=== PATIENT | female | born 1970 | race Caucasian/White ===

== ENCOUNTER 2020-06-20 15:58 | Outpatient (RCR) | payer OTHER, SELFPAY ==
--- NOTE | 2020-06-21 16:49 | PTOPEVAL ---
Thank you for referring Vania Rowland to [facility].? The patient is scheduled to be seen for therapy? ____x/week for ___ weeks. Please review, sign, date and return this plan of care ILSA. I agree with and certify that the following plan of care is medically necessary. Referring Physician Date Admitting Provider: Attending Provider: Samira Gould, MD Referring Provider: *PT Outpatient Evaluation Start: 06/20/20 16:12 Freq: Status: Active Protocol: Document 06/20/20 16:12 [facility] (Rec: 06/20/20 17:03 [facility] [id number]) Therapy Assessment Status Assessment Status Assessment Status Evaluation Outpatient Past Medical History Cardiovascular History Hx Hypercholesterolemia Yes Hx Hypertension Yes Musculoskeletal History Hx Fibromyalgia Yes Reproductive History Hx Post Menopausal Yes Evaluation Information Problem Diagnosis R ankle sprain and avulsion fracture of the tuberosity of the calcaneus Onset 05/07/20 Subjective Information patient reports she injured Query Text:As Reported By Patient/ her ankle/heel on 05/07/20. Family she reports she she fell through a floor and jammed her R LE into the ground. she reports she reports she has had x-rays of the ankle. she reports no surgery. she reports she had no boot, but did use an air cast. she reports she uses this air cast infrequently still for increased walkikng activities. she reports she has increased pain with walking, walking on uneven ground, and walking down steps. Prior Level of Function Comments Additional Prior Level of Function prior to her fall, no issues Comments with the R ankle. patient reports she is currently off work. she reports she works for [employer]. Pain Assessment Timing of Pain Assessment Timing of Pain Assessment Assessment Pain Scale Pain Scale Used Numeric (1 - 10) Self Report Pain Assessment Right Ankle(s) Reported Pain Level 3 Pain Frequency Acute,Intermittent Lowest Pain Intensity 0 Greatest Pain Intensity 8 Pain Score Pain Score 3: Self Report Additional Pain Score Comments patient re
--- NOTE | 2020-06-21 17:06 | PTOPEVAL ---
Thank you for referring Vania Rowland to [facility].? The patient is scheduled to be seen for therapy? ____x/week for ___ weeks. Please review, sign, date and return this plan of care ILSA. I agree with and certify that the following plan of care is medically necessary. Referring Physician Date Admitting Provider: Attending Provider: Samira Gould, MD Referring Provider: *PT Outpatient Evaluation Start: 06/20/20 16:12 Freq: Status: Active Protocol: Document 06/20/20 16:12 [facility] (Rec: 06/20/20 17:03 [facility] [id number]) Therapy Assessment Status Assessment Status Assessment Status Evaluation Outpatient Past Medical History Cardiovascular History Hx Hypercholesterolemia Yes Hx Hypertension Yes Musculoskeletal History Hx Fibromyalgia Yes Reproductive History Hx Post Menopausal Yes Evaluation Information Problem Diagnosis R ankle sprain and avulsion fracture of the tuberosity of the calcaneus Onset 05/07/20 Subjective Information patient reports she injured Query Text:As Reported By Patient/ her ankle/heel on 05/07/20. Family she reports she she fell through a floor and jammed her R LE into the ground. she reports she reports she has had x-rays of the ankle. she reports no surgery. she reports she had no boot, but did use an air cast. she reports she uses this air cast infrequently still for increased walkikng activities. she reports she has increased pain with walking, walking on uneven ground, and walking down steps. Prior Level of Function Comments Additional Prior Level of Function prior to her fall, no issues Comments with the R ankle. patient reports she is currently off work. she reports she works for [employer]. Pain Assessment Timing of Pain Assessment Timing of Pain Assessment Assessment Pain Scale Pain Scale Used Numeric (1 - 10) Self Report Pain Assessment Right Ankle(s) Reported Pain Level 3 Pain Frequency Acute,Intermittent Lowest Pain Intensity 0 Greatest Pain Intensity 8 Pain Score Pain Score 3: Self Report Additional Pain Score Comments patient re
--- NOTE | 2020-07-27 07:26 | PCPTNOTE ---
patient called and cancelled appt due to not feeling well. MARVIN
--- NOTE | 2020-08-14 16:31 | PTOPEVAL ---
Thank you for referring Vania Rowland to [facility].? The patient is scheduled to be seen for therapy? __3__x/week for 9 visits. Please review, sign, date and return this plan of care ILSA. I agree with and certify that the following plan of care is medically necessary. Referring Physician Date Admitting Provider: Attending Provider: Samira Gould, Referring Provider: *PT Outpatient Evaluation Start: 06/20/20 16:12 Freq: Status: Active Protocol: Document 08/14/20 15:41 [facility] (Rec: 08/14/20 16:31 [facility] [id number]) Outpatient Past Medical History Cardiovascular History Hx Hypercholesterolemia Yes Hx Hypertension Yes Musculoskeletal History Hx Fibromyalgia Yes Reproductive History Hx Post Menopausal Yes Pain Assessment Pain Scale Pain Scale Used Numeric (1 - 10) Self Report Pain Assessment Right Ankle(s) Reported Pain Level 3 Pain Score Pain Score 3: Self Report Interventions Used Interventions Used By Clinicians Activity or ADL's,Exercise Lower Extremity Range of Motion General Lower Extremity Range of Motion Gross Lower Extremity Range of Motion -right ankle DF AROM 3 degree Comments -right ankle PF AROM 51 degrees -right ankle inversion AROM 25 -right ankle eversion AROM 3 degrees Lower Extremity Muscle Strength Testing Ankle Strength Right Ankle Dorsiflexion Strength 4+ Good + Ankle Plantarflexion Strength 3+ Fair + Ankle Eversion Strength 4 Good Ankle Inversion Strength 4 Good Gait Assessment Gait Assessment Additional Ambulation Comments Pt. ambulates with excessive toe out on the right with decreased stance time on the right and slight trendelenburg Stair Climbing Assessment Stair Climbing Assessment Stair Climbing Comments Pt. continues to use single step pattern with stair navigation due to lack of dorsiflexion ROM. General Exercise General Exercises Exercise Description -partial single limb heel Query Text:Record Sets, Reps, raise on the right x 10 Resistance, and Position -tandem stance on foam x 2 minutes bilateral -step downs x 15 -SLS x 1 minute right x 2 -squat lifts x 15 17.5# -sanddune series x 3 minutes PT Clinical Summary Clinical Summary Protocol: PTEVCODE PT Clinical Summary Pt. continues to demonstrate slow pro
--- NOTE | 2020-09-12 10:45 | PTEVAL ---
Physical Therapy Patient Update I treated and assessed Vania Rowland this date. Patient presents with increased localized pain to the initial area of injury, reported falls at home in her yard, increased pain with ambulation, increased weakness, and decreased ROM of the R ankle since her last re-evaluation. She has additional therapy visits in her current POC, but I fear she has re-injured lateral R ankle. She returns for a follow-up with your office tomorrow. I suggested patient attend follow-up, purchase a more stable brace, and return to therapy with a reduced exercise plan to allow time for new healing of the lateral ankle. AROM R ankle DF = 0 degrees R ankle DF = 4-/5 R ankle PF = 4-/5 R ankle EV/IV = 3+/5 each Decreased toe off/terminal stance of gait cycle, increased R trendelenburg lean, pain associated with R ankle DF phase of gait. Please let me know if you have any additional questions or concerns with her case. Thank You, Freddie Ford DPT
--- NOTE | 2020-10-19 16:13 | PCPTNOTE ---
10/19/20 - patient has not been to therapy in several weeks. patient has been called and reports that are not going to continue therapy at this time. as of this date, they will be dc'd from skilled PT services, and all progress towards goals will be taken from their most recent evaluation/note. LOGAN
== END 2020-09-18 23:59 | disposition home or self-care (01) ==
LOC: CHSPT 15:58
PROVIDERS: Visit Provider Internal Medicine
DX: S92.034D Nondisplaced avulsion fracture of tuberosity of right calcaneus, subsequent encounter for fracture with routine healing (principal)
CPT/HCPCS: 97014; 97016; 97035; 97110; 97140; 97161; 97530; 97542; G0283

== ENCOUNTER 2020-10-31 09:55 | Outpatient (RCR) | payer OTHER, SELFPAY ==
--- NOTE | 2020-10-31 11:47 | PTOPEVAL ---
Thank you for referring Vania Rowland to [facility].? The patient is scheduled to be seen for therapy? 2x/week for 12 visits. Please review, sign, date and return this plan of care ILSA. I agree with and certify that the following plan of care is medically necessary. Referring Physician Date Admitting Provider: Attending Provider: tarik baker Referring Provider: *PT Outpatient Evaluation Start: 10/31/20 10:09 Freq: Status: Active Protocol: Document 10/31/20 10:09 [facility] (Rec: 10/31/20 11:47 [facility] [id number]) Therapy Assessment Status Assessment Status Assessment Status Evaluation Outpatient Past Medical History Cardiovascular History Hx Hypercholesterolemia Yes Hx Hypertension Yes Musculoskeletal History Hx Fibromyalgia Yes Reproductive History Hx Post Menopausal Yes Evaluation Information Problem Diagnosis R ankle ATFL sprain, closed nondisplaced fracture of the calcaneous Onset 05/07/20 Subjective Information Patient was walking through a Query Text:As Reported By Patient/ house and fell through a porch Family boardand broke her ankle at the calcaneous. The patient states she has done therapy for this before, and is coming back for a second round of therapy. Patient states that stairs, walking, standing, changing directions are the hardest things for her at this time. Patient states she still does some of her HEP from the last time she was at therapy. 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
--- NOTE | 2020-11-28 10:49 | PTOPEVAL ---
Thank you for referring Vania Rowland to [facility].? The patient is scheduled to be seen for therapy? __2__x/week for 4 visits . Please review, sign, date and return this plan of care ILSA. I agree with and certify that the following plan of care is medically necessary. Referring Physician Date Admitting Provider: Attending Provider: tarik baker Referring Provider: *PT Outpatient Evaluation Start: 10/31/20 10:09 Freq: Status: Active Protocol: Document 11/28/20 10:04 [facility] (Rec: 11/28/20 10:49 [facility] [id number]) Therapy Assessment Status Assessment Status Assessment Status Re-evaluation Outpatient Past Medical History Cardiovascular History Hx Hypercholesterolemia Yes Hx Hypertension Yes Musculoskeletal History Hx Fibromyalgia Yes Reproductive History Hx Post Menopausal Yes Evaluation Information Problem Diagnosis low back pain Onset 11/27/20 Subjective Information Pt. describes pain in the area Query Text:As Reported By Patient/ of the low back. She has Family been attending therapy to address a right ankle sprain. She states that she has constant low back pain and has for the past 2 years. She reports that she had no specific injury to the low back, just a sudden onset. She reports that she would like to continue treatment to address the right ankle but would also like to address her low back pain. Pain Assessment Pain Scale Pain Scale Used Numeric (1 - 10) Self Report Pain Assessment Lower Back Reported Pain Level 2 Greatest Pain Intensity 5 Right Ankle(s) Reported Pain Level 2 Pain Score Pain Score 2,2: Self Report Interventions Used Interventions Used By Clinicians Activity or ADL's,Exercise Cervical and Lumbar ROM Lumbar ROM Lumbar Flexion Active Floor Query Text:Hands to: Lumbar Extension (0-40) 10 Query Text:Active in Degrees Lumbar Lateral Flexion Right (0-40) 30 Query Text:Active in Degrees Lumbar Lateral Flexion Left (0-40) 30 Query Text:Active in Degrees Lateral Rotation Right (0-45) 20 Query Text:Active in Degrees Lateral Rotation Left (0-45) 20 Query Text:Active in Degrees Cervical and Lumbar Muscle Testing Lumbar Strength Upper Abdominal Strength 4-Good- Lower Abdominal Strength
--- NOTE | 2020-12-12 14:45 | PTOPEVAL ---
Thank you for referring Vania Fischer to [facility].? The patient is scheduled to be seen for therapy? ____x/week for ___ weeks. Please review, sign, date and return this plan of care ILSA. I agree with and certify that the following plan of care is medically necessary. Referring Physician Date Admitting Provider: Attending Provider: tarik baker Referring Provider: Trevon Harvey, MD *PT Outpatient Evaluation Start: 10/31/20 10:09 Freq: Status: Active Protocol: Document 12/12/20 10:00 [facility] (Rec: 12/12/20 14:43 [facility] [id number]) Therapy Assessment Status Assessment Status Assessment Status Re-evaluation Outpatient Past Medical History Cardiovascular History Hx Hypercholesterolemia Yes Hx Hypertension Yes Musculoskeletal History Hx Fibromyalgia Yes Reproductive History Hx Post Menopausal Yes Evaluation Information Problem Diagnosis low back pain, R ankle pain Onset 11/27/20 Additional Evaluation Detail LEFS = 55% functionally declined Oswestry = 48% functionally declined Subjective Information mrs. fischer reports she feels Query Text:As Reported By Patient/ Alright this date. she Family reports she is better in the mornings, but still has pain in the R lateral ankle with increased activty and at the end of the day. she reports she is scheduled to follow up with her MD on 01/11/21. she reports her lower back pain is less eggregious this date due to having it for years. she reports she would like some exercises for her lower back pain, but she gets the greatest benefit from skilled PT for her R ankle. Pain Assessment Timing of Pain Assessment Timing of Pain Assessment Assessment Pain Scale Pain Scale Used Numeric (1 - 10) Self Report Pain Assessment Lower Back Reported Pain Level 2 Right Ankle(s) Reported Pain Level 2 Pain Score Pain Score 2,2: Self Report Interventions Used Interventions Used By Clinicians Activity or ADL's,Education, Exercise Lower Extremity Range of Motion Ankle/Foot Range of Motion Right Ankle Dorsiflexion With Knee Extension 10 Range of Motion - Active Ankle Plantarflexion Range of Motion - 45 Active
== END 2020-12-26 17:00 | disposition home or self-care (01) ==
LOC: CHSPT 09:55
PROVIDERS: Referring Provider Neurological Surgery
DX: S93.491S Sprain of other ligament of right ankle, sequela (principal); S92.025S Nondisplaced fracture of anterior process of left calcaneus, sequela; M54.2 Cervicalgia
CPT/HCPCS: 97110; 97112; 97140; 97161; 97530

== ENCOUNTER 2021-07-06 08:05 | Outpatient (RCR) | payer OTHER, SELFPAY ==
--- NOTE | 2021-07-06 09:04 | PTOPEVAL ---
Thank you for referring Vania Rowland to [facility].? The patient is scheduled to be seen for therapy? ____x/week for ___ weeks. Please review, sign, date and return this plan of care ILSA. I agree with and certify that the following plan of care is medically necessary. Referring Physician Date Admitting Provider: Attending Provider: Trevon Harvey, MD Referring Provider: *PT Outpatient Evaluation Start: 07/06/21 07:29 Freq: Status: Active Protocol: Document 07/06/21 08:10 [facility] (Rec: 07/06/21 09:03 [facility] [email or web address]) Therapy Assessment Status Assessment Status Assessment Status Evaluation Outpatient Past Medical History Cardiovascular History Hx Hypercholesterolemia Yes Hx Hypertension Yes Musculoskeletal History Hx Fibromyalgia Yes Reproductive History Hx Post Menopausal Yes Evaluation Information Problem Diagnosis cervical fusion at 3-4 Onset 06/19/21 Subjective Information Patient states that she Query Text:As Reported By Patient/ underwent a C3-C4 fusion due Family to bad headaches. She has not had any headaches since the surgery. Patient states that her mobility is really limited especially looking up. She is also not able to reach into her top cabinet and look up at the same time. She also has difficulty looking in her blind spots when driving. Patient reports she has a weight restriction of 20#. She is taking hydrocodone for the pain. 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
== END 2021-08-01 14:53 | disposition home or self-care (01) ==
LOC: CHSPT 08:05
PROVIDERS: Visit Provider Neurological Surgery
DX: M54.2 Cervicalgia (principal)
CPT/HCPCS: 97014; 97110; 97140; 97161; G0283